=== PATIENT | male | born 1985 | race Hispanic/Latino ===

== ENCOUNTER 2021-04-10 06:02 | Emergency (ER) | payer OTHER ==
--- NOTE | 2021-04-10 06:16 | Emergency Department Report ---
ED Male HPI - General Chief complaint: Urogenital-Male Stated complaint: TESTICLE PAIN Time Seen by Provider: 04/10/21 06:15 Source: patient Mode of arrival: Ambulatory Limitations: No Limitations - History of Present Illness Initial comments: Patient presents with abrupt onset of left testicular pain. This started this morning. He was actually awake when this started. He had abrupt onset of sharp stabbing pain in the left testicle. He has noted urinary urgency associated with this. There is no trauma. He has no nausea or vomiting. There is no flank pain or back pain associated with this. There is no abdominal pain. He is never had symptoms like this before. He has not had hematuria or dysuria. He has not had penile discharge. Again, the pain is sharp and stabbing. He has not noticed any aggravating or alleviating factors. - Related Data Previous Rx's Medication Instructions Recorded Last Taken Type Ibuprofen [Motrin] 800 mg PO Q8HR PRN #30 tablet 04/10/21 Unknown Rx Allergies Allergy/AdvReac Type Severity Reaction Status Date / Time No Known Allergies Allergy Verified 04/10/21 06:07 ED Review of Systems ROS: Stated complaint: TESTICLE PAIN Other details as noted in HPI Comment: All other systems reviewed and negative Constitutional: denies: fever Eyes: denies: eye pain ENT: denies: throat pain Respiratory: denies: cough Cardiovascular: denies: chest pain Endocrine: denies: unexplained weight loss Gastrointestinal: denies: abdominal pain Genitourinary: as per HPI Musculoskeletal: denies: back pain Skin: denies: rash Hematological/Lymphatic: denies: easy bruising ED Past Medical Hx - Past Medical History Hx Hypertension: Yes - Surgical History Past Surgical History?: No - Family History Family history: hypertension - Medications Home Medications: Home Medications Medication Instructions Recorded Confirmed Last Taken Type Ibuprofen [Motrin] 800 mg PO Q8HR PRN #30 tablet 04/10/21 Unknown Rx ED Physical Exam - General Limitations: No Limitations, Other (Pulse ox noted and normal) General appearance: alert, in distress (Moderate discomfort) - Head Head exam: Present: atraumatic, normocephalic - Eye Eye exam: Present: normal appearance, EOMI. Absent: scleral icterus - ENT ENT exam: Present: normal exam, normal external ear exam - Neck Neck exam: Present: normal inspection. Absent: meningismus - Respiratory Respiratory exam: Present: normal lung sounds bilaterally, respiratory distress - Cardiovascular Cardiovascular Exam: Present: regular rate, normal rhythm - GI/Abdominal GI/Abdominal exam: Present: soft. Absent: distended, tenderness - exam: Present: normal inspection, testicular tenderness (Left side), vertical testicular lie, circumcision, other (Normal cremasterics. No hernia mass). Absent: urethral discharge, scrotal swelling - Back Exam Back exam: Absent: CVA tenderness (R), CVA tenderness (L) - Neurological Exam Neurological exam: Present: alert, oriented X3, normal gait. Absent: motor sensory deficit - Psychiatric Psychiatric exam: Present: normal affect, normal mood - Skin Skin exam: Present: warm, dry ED Course Vital Signs 04/10/21 06:03 Temperature 97.8 F Pulse Rate 90 Respiratory 19 Rate Blood Pressure 157/107 [Right] O2 Sat by Pulse 100 Oximetry - Reevaluation(s) Reevaluation #1: 04/10/21 06:15 Ultrasound was ordered. UA was ordered. Old records reviewed. Reevaluation #2: 04/10/21 07:40 Labs and ultrasound are pending Reevaluation #3: 04/10/21 10:19 CT was noted and the patient was discharged. ED Medical Decision Making - Radiology Data Radiology results: report reviewed - Medical Decision Making Patient presents with abrupt onset of right testicular pain. There is no evidence of torsion or discharge. I do not believe this represents a sexually transmitted infection. He clinically did not have features of torsion. He did have hematuria with abrupt onset of pain which would likely represent ureteral colic. The CT failed to demonstrate any other acute pathology. There is no tumor or mass. He did not have a hernia mass. He was treated empirically and discharged. Critical Care Time: No Critical care attestation.: If time is entered above; I have spent that time in minutes in the direct care of this critically ill patient, excluding procedure time. ED Disposition Clinical Impression: Left testicular pain, Microscopic hematuria Disposition: HOME / SELF CARE / HOMELESS Is pt being admited?: No Condition: Stable Instructions: Hematuria, Adult Additional Instructions: Drink plenty water. Strain the urine. Return for problems. Decrease calcium consumption. Follow-up with your regular doctor for recheck and further management. Consider urology consultation as needed. Prescriptions: Ibuprofen [Motrin] 800 mg PO Q8HR PRN #30 tablet PRN Reason: Pain, Moderate (4-6) Referrals: TAMMY CAPELLAN MD [Staff Physician] - 3-5 Days PRIMARY CARE, [Primary Care Provider] - 3-5 Days
[2021-04-10] MEDS: KETOROLAC 30 MG/1 ML INJ IM ONE ×2 (06:34→06:56)
[2021-04-10 07:37] LABS: Bacteria,Urine 1+ /HPF (Negative); Bilirubin,Urine NEG (Negative); Blood,Urine LG (Negative); Color,Urine Yellow (Yellow); Mucus,Urine 2+ /HPF; Urobilinogen,Urine < 2.0 mg/dL (<2.0)
--- NOTE | 2021-04-10 07:41 | Ultrasound Report ---
SCROTAL ULTRASOUND WITH DOPPLER HISTORY: left testicular pain COMPARISON: None. TECHNIQUE: Grayscale, color and spectral Doppler images were obtained of the scrotum. FINDINGS: RIGHT: Right testicle: The right testicle demonstrates a slightly heterogeneous echotexture but no focal mas s, cyst or calcifications. Spectral Doppler waveforms demonstrate arterial flow. No convincing hypere bib. Right testicular size: 5.3 x 2.9 x 3.7 cm. Right epididymis: No significant abnormality. LEFT: Left testicle: The left testicle demonstrates a slightly heterogeneous echotexture but no focal mass , cyst or calcifications. Spectral Doppler waveforms demonstrate arterial flow. No convincing hyperem ia. Left testicular size: 5.8 x 2.8 x 4.1 cm. Left epididymis: No significant abnormality. Additional findings: None. IMPRESSION: 1. No significant abnormality. Signer Name: Sudheer Sloan Jr, MD Signed: 04/10/2021 7:36 AM Workstation Name: [id number]
[2021-04-10 07:58] LABS: RBC,Urine > 182.0 /HPF (0.0-6.0)
--- NOTE | 2021-04-10 09:38 | Cat Scan Report ---
CT ABDOMEN AND PELVIS WITHOUT CONTRAST INDICATION / CLINICAL INFORMATION: Left sided pain with hematuria, evaluate for stone. TECHNIQUE: Axial CT images were obtained through the abdomen and pelvis without IV contrast. All CT scans at this location are performed using CT dose reduction for ALARA by means of automated exposure control. COMPARISON: None available. FINDINGS: LOWER CHEST: No significant abnormality. LIVER: No significant abnormality. GALLBLADDER: No significant abnormality. BILE DUCTS: No significant abnormality. PANCREAS: No significant abnormality. SPLEEN: No significant abnormality. ADRENALS: No significant abnormality. RIGHT KIDNEY / URETER: No stones or hydronephrosis. LEFT KIDNEY / URETER: No stones or hydronephrosis. The mid and distal left ureter is mildly dilated w ith periureteral stranding. No ureteral stone identified. STOMACH / SMALL BOWEL: Tiny hiatal hernia. Small bowel is normal. COLON: No significant abnormality. APPENDIX: No significant abnormality. PERITONEUM: No free fluid. No free air. No fluid collection. LYMPH NODES: No significant adenopathy. AORTA / ARTERIES: No significant abnormality. IVC / VEINS: No significant abnormality. URINARY BLADDER: No significant abnormality. REPRODUCTIVE ORGANS: No significant abnormality. ADDITIONAL FINDINGS: Small fat-containing umbilical hernia. SKELETAL SYSTEM: No significant abnormality. IMPRESSION: 1. Mild dilation and periureteral stranding of the mid and distal left ureter without obstructing sto ne identified. This could represent recently passed stone versus ureteritis. Recommend clinical corre lation. 2. Incidental findings as above. Signer Name: Toro Bosch MD Signed: 04/10/2021 9:33 AM Workstation Name: [id number]
[2021-04-10 10:24] VITALS: BP 161/107
== END 2021-04-10 10:29 | disposition home or self-care (01) ==
LOC: ED 06:02
DX: N50.812 Left testicular pain (principal); R31.9 Hematuria, unspecified; I10 Essential (primary) hypertension
CPT/HCPCS: 74176; 81001; 93975; 96372; 99284; J1885